=== PATIENT | male | born 1930 | race Caucasian/White ===

== ENCOUNTER 2017-05-15 07:59 | Day surgery (SDC) | payer MEDICARE, OTHER ==
[~2017-05-15] VITALS: Ht 175.3 cm; Wt 61.8 kg
[~2017-05-15 07:59] MED LIST: ACET325T14 PO; AMOX-291 PO; ATOR20TA PO; CHOL10003 PO; CHOL200012 PO; CIPR500T3 PO; CLON0.1T PO; COENZYME Q10 21 EACH PO; CYAN1TAB29 PO; DIGO125T PO; DIGO250T PO; DOCU-30 PO; ERTA1VIA IV; GUAI5SYR PO; MAGN100P PO; METF500T27 PO; METF500T4 PO; PANT40TA3 PO; PANT40TA5 PO; SITA100T PO; VITA200C7 PO; VITAMIN B6 PO; WARF2.5T73 PO; WARF5TAB PO; WARF5TAB7 PO
[2017-05-15] MEDS ORDERED: MIDAZOLAM 1 MG/ML, 2ML ONE (08:57)
[2017-05-15 09:13] VITALS: BP 134/70
[2017-05-15] MEDS ORDERED: LACTATED RINGERS 1,000 ML IV SCH (09:17)
[2017-05-15 09:23] LABS: ASPARTATE AMINO TRANSFERASE 19 U/L (15-37); BLOOD UREA NITROGEN 21 mg/dL (7-18)
[2017-05-15] MEDS ORDERED: FENTANYL PF 100 MCG/2ML ONE (09:51)
[2017-05-15] MEDS ORDERED: ACETAMINOPHEN 325 MG TABLET PO PRN (10:00)
[2017-05-15] MEDS ORDERED: EPHEDRINE 50 MG/ML, 1ML IVPush PRN (10:00)
[2017-05-15] MEDS ORDERED: METOPROLOL 1 MG/ML, 5ML IV PRN (10:00)
[2017-05-15] MEDS ORDERED: PROMETHAZINE 25 MG/ML, 1ML IV PRN (10:00)
[2017-05-15] MEDS ORDERED: ONDANSETRON 2MG/ML, 2ML IVPush PRN (10:00)
[2017-05-15] MEDS ORDERED: hydrALAzine 20 MG/ML, 1ML IV PRN (10:00)
[2017-05-15] MEDS ORDERED: ALBUTEROL SULFATE 2.5 MG/3 ML NPPB PRN (10:00)
[2017-05-15] MEDS ORDERED: FENTANYL PF 100 MCG/2ML IV PRN (10:00)
[2017-05-15] MEDS ORDERED: LABETALOL 5MG/ML, 20ML IV PRN (10:00)
[2017-05-15] MEDS ORDERED: HYDROcodone/APAP 7.5-325MG/15ML UDC PO PRN (10:00)
[2017-05-15] MEDS ORDERED: OXYcodone 5 MG/5 ML ORAL.SOL UDC PO PRN (10:00)
[2017-05-15] MEDS ORDERED: PROPOFOL 10 MG/ML, 20ML ONE (16:25)
[2017-05-15] MEDS ORDERED: ONDANSETRON 2MG/ML, 2ML ONE (16:25)
[2017-05-15] MEDS ORDERED: SUCCINYLCHOLINE 20 MG/ML, 10ML ONE (16:25)
[2017-05-15] MEDS ORDERED: PROPOFOL 10 MG/ML, 50ML ONE (16:25)
== END 2017-05-15 15:10 ==
LOC: OUT 07:59
PROVIDERS: ATTEND Internal Medicine Geriatric Medicine
DX: K22.5 Diverticulum of esophagus, acquired (principal); Z87.39 Personal history of other diseases of the musculoskeletal system and connective tissue; Z85.51 Personal history of malignant neoplasm of bladder; I48.91 Unspecified atrial fibrillation; Z98.890 Other specified postprocedural states; Z90.49 Acquired absence of other specified parts of digestive tract
CPT/HCPCS: 36415; 43130; 43239; 80053; 82962; 85610; 85730; 93005; J0330; J2250; J2405; J2704; J3010; J7120

== ENCOUNTER 2018-01-22 06:43 | Day surgery (SDC) | payer MEDICARE, OTHER ==
[2018-01-17 10:42] VITALS: BP 146/71
[~2018-01-22] VITALS: Ht 175.3 cm; Wt 58.0 kg
[~2018-01-22 06:43] MED LIST changes: -CHOL200012 PO; +CHOL200074 PO; +DOCU-131 PO; -DOCU-30 PO; +MULT-717 PO; +WARF-36 PO; -WARF5TAB7 PO
[2018-01-22] MEDS ORDERED: LACTATED RINGERS 1,000 ML IV SCH (07:35)
[2018-01-22 07:38] VITALS: BP 146/71
[2018-01-22] MEDS ORDERED: LIDOCAINE-MPF 1%, 2ML INFIL ONE (08:00)
[2018-01-22 08:06] LABS: BASOPHILS # (AUTO) 0.02 x10^3/uL (0-0.1); BASOPHILS % (AUTO) 0 % (0-1); EOSINOPHILS # (AUTO) 0.16 x10^3/uL (0-0.4); EOSINOPHILS % (AUTO) 2 % (1-7); LYMPHOCYTES # (AUTO) 0.96 x10^3/uL (1-3.4); LYMPHOCYTES % (AUTO) 14 % (22-44); MD NO; MEAN CORPUSCULAR HEMOGLOBIN 31.4 pg (27.5-34.5); MEAN CORPUSCULAR HGB CONC 33.3 g/dL (33.2-36.2); MEAN CORPUSCULAR VOLUME 94.5 fL (81-97); MEAN PLATELET VOLUME 7.3 fL (7.4-10.4); MONOCYTES # (AUTO) 0.65 x10^3/uL (0.2-0.8); MONOCYTES % (AUTO) 10 % (2-9); NEUTROPHILS # (AUTO) 4.93 x10^3/uL (1.8-6.8); NEUTROPHILS % (AUTO) 73 % (42-75); PLATELET COUNT 357 x10^3/uL (130-400); RED BLOOD COUNT 4.01 x10^6/uL (4.38-5.82)
[2018-01-22] MEDS ORDERED: FENTANYL PF 100 MCG/2ML ONE (08:12)
[2018-01-22] MEDS ORDERED: LIDOCAINE GEL 2%, 5ML ONE (08:13)
[2018-01-22 08:15] LABS: INTERNATIONAL NORMALIZED RATIO 1.08 (0.93-1.1); PROTHROMBIN TIME 11.2 Seconds (9.6-11.5)
[2018-01-22] MEDS ORDERED: LIDOCAINE-MPF 2% ,5ML ONE (08:54)
[2018-01-22] MEDS ORDERED: FENTANYL PF 100 MCG/2ML IV PRN (09:00)
[2018-01-22] MEDS ORDERED: MIDAZOLAM 1 MG/ML, 2ML IV PRN (09:00)
[2018-01-22] MEDS ORDERED: ONDANSETRON 2MG/ML, 2ML IVPush PRN (09:00)
[2018-01-22] MEDS ORDERED: morphine SULFATE 10 MG/ML, 1ML IV PRN (09:00)
[2018-01-22] MEDS ORDERED: PROMETHAZINE 12.5 MG SUPP PR PRN (09:00)
[2018-01-22] MEDS ORDERED: LABETALOL 5MG/ML, 20ML IV PRN (09:00)
[2018-01-22] MEDS ORDERED: OXYcodone 5 MG/5 ML ORAL.SOL UDC PO PRN (09:00)
[2018-01-22] MEDS ORDERED: PROMETHAZINE 25 MG/ML, 1ML IV PRN (09:00)
[2018-01-22] MEDS ORDERED: ALBUTEROL/IPRATROPIUM 2.5MG/0.5MG, 3 ML NPPB PRN (09:00)
[2018-01-22] MEDS ORDERED: ACETAMINOPHEN 325 MG TABLET PO PRN (09:00)
[2018-01-22] MEDS ORDERED: MEPERIDINE/PF 25MG/0.5ML IVPush PRN (09:00)
[2018-01-22] MEDS ORDERED: hydrALAzine 20 MG/ML, 1ML IV PRN (09:00)
[2018-01-22] MEDS ORDERED: GLYCOPYRROLATE 0.2MG/1ML, 5ML ONE (10:36)
[2018-01-22] MEDS ORDERED: ONDANSETRON 2MG/ML, 2ML ONE (10:52)
[2018-01-22] MEDS ORDERED: PROPOFOL 10 MG/ML, 20ML ONE (10:52)
[2018-01-22] MEDS ORDERED: DEXAMETHASONE 4 MG/ML, 1ML ONE (10:52)
[2018-01-22] MEDS ORDERED: PHENYLEPHRINE 10 MG/ML ONE (15:21)
== END 2018-01-22 14:25 ==
LOC: OUT 06:43
PROVIDERS: ATTEND Internal Medicine Geriatric Medicine
DX: K22.5 Diverticulum of esophagus, acquired (principal); I10 Essential (primary) hypertension; E11.9 Type 2 diabetes mellitus without complications; Z87.39 Personal history of other diseases of the musculoskeletal system and connective tissue; Z85.51 Personal history of malignant neoplasm of bladder; Z86.010 Personal history of colon polyps; Z98.890 Other specified postprocedural states; Z90.49 Acquired absence of other specified parts of digestive tract
CPT/HCPCS: 36415; 43180; 85025; 85610; 85730; 93005; J1100; J2370; J2405; J2704; J3010; J3490; J7120

== ENCOUNTER 2018-09-15 06:33 | Emergency (ER) | payer MEDICARE, OTHER ==
[~2018-09-15] VITALS: Ht 180.3 cm; Wt 60.9 kg
[~2018-09-15 06:33] MED LIST changes: -CLON0.1T PO; +CLON0.1T22 PO; +METF500T17 PO; -METF500T4 PO; +WARF2.5T32 PO; -WARF2.5T73 PO
[2018-09-15 07:08] LABS: BASOPHILS # (AUTO) 0.02 x10^3/uL (0-0.1); BASOPHILS % (AUTO) 0 % (0-1); EOSINOPHILS # (AUTO) 0.13 x10^3/uL (0-0.4); EOSINOPHILS % (AUTO) 2 % (1-7); LYMPHOCYTES # (AUTO) 1.05 x10^3/uL (1-3.4); LYMPHOCYTES % (AUTO) 17 % (22-44); MD NO; MEAN CORPUSCULAR HEMOGLOBIN 29.7 pg (27.5-34.5); MEAN CORPUSCULAR HGB CONC 32.7 g/dL (33.2-36.2); MEAN CORPUSCULAR VOLUME 90.8 fL (81-97); MEAN PLATELET VOLUME 7.6 fL (7.4-10.4); MONOCYTES # (AUTO) 0.56 x10^3/uL (0.2-0.8); MONOCYTES % (AUTO) 9 % (2-9); NEUTROPHILS # (AUTO) 4.63 x10^3/uL (1.8-6.8); NEUTROPHILS % (AUTO) 73 % (42-75); PLATELET COUNT 324 x10^3/uL (130-400); RED BLOOD COUNT 4.52 x10^6/uL (4.38-5.82); RED CELL DISTRIBUTION WIDTH 16.6 % (9.4-14.8)
[2018-09-15 07:18] LABS: ANION GAP 8 mmol/L (5-15); CALCIUM 8.6 mg/dL (8.5-10.1); CHLORIDE 105 mmol/L (98-107); CREATININE 1.01 mg/dL (0.7-1.3)
[2018-09-15 08:35] LABS: MICROSCOPIC INDICATED
[2018-09-15 08:36] LABS: CULTURE INDICATED? YES
[2018-09-15] MEDS ORDERED: CEFTRIAXONE 1,000 MG IM ONE (10:00)
[2018-09-15] MEDS ORDERED: CEFTRIAXONE 1,000 MG ONE (10:09)
[2018-09-15 10:29] VITALS: BP 155/71
== END 2018-09-15 10:30 | disposition home or self-care (01) ==
LOC: ED 10:28
DX: N30.90 Cystitis, unspecified without hematuria (principal); I48.91 Unspecified atrial fibrillation; Z85.51 Personal history of malignant neoplasm of bladder
CPT/HCPCS: 36415; 51705; 80048; 81001; 85025; 87077; 87086; 87186; 99283; J0696